=== PATIENT | male | born 1940 | race Caucasian/White ===

== ENCOUNTER 2018-01-23 06:11 | Observation (INO) | payer OTHER ==
[2018-01-23] MEDS ORDERED: FAMOTIDINE 20 MG TAB PO ONE (06:16)
[2018-01-23] MEDS ORDERED: DIAZEPAM 5 MG TAB PO ONE (06:16)
[2018-01-23] MEDS ORDERED: diphenhydrAMINE 25 MG CAP PO ONE (06:16)
[2018-01-23] MEDS ORDERED: NS 1,000 ML IV ONE ×2 (06:16→14:32)
[2018-01-23] MEDS ORDERED: ASPIRIN EC 325 MG TAB PO ONE (06:16)
[2018-01-23] MEDS ORDERED: CLOPIDOGREL BISULFATE 75 MG TAB ONE (06:48)
--- NOTE | 2018-01-23 06:50 | PDPROPOC ---
Sedation Plan of Care Sedation Plan of Care: mental status noted, patient educated of risks, benefits , alternatives, patient can tolerate sedation ASA Classification: ASA 2 Planned drugs: fentanyl, midazolam Mallampati Score: Class 2 Mallampati Reference Image: Patient passed 3-3-2 rule?: Yes
--- NOTE | 2018-01-23 06:50 | PDHPUP ---
History & Physical Update H&P update statement: This history and physical update is based on an assessment of the patient which was completed after admission or registration (within 24 hours), but prior to the surgery/procedure. H&P update: H&P reviewed & patient examined, no change in patient's condition since H&P completed
[2018-01-23 06:53] LABS: PLATELET COUNT 169 10^3/uL (150-400)
[2018-01-23] MEDS ORDERED: CLOPIDOGREL BISULFATE 75 MG TAB PO ONE (07:00)
[2018-01-23 07:01] LABS: INR 0.98 (0.83-1.16); PROTIME(PATIENT) 13.2 SEC (12.0-15.0)
[2018-01-23] MEDS ORDERED: IOPAMIDOL (ISOVUE-370) 150 ML BTL IV ONE (07:11)
[2018-01-23] MEDS ORDERED: LIDOCAINE 1% 300 MG/30 ML SDV ONE (07:11)
[2018-01-23] MEDS ORDERED: fentaNYL 100 MCG/2 ML INJ ONE (07:14)
[2018-01-23] MEDS ORDERED: MIDAZOLAM 2 MG/2 ML VIAL ONE ×2 (07:15→15:30)
[2018-01-23] MEDS ORDERED: hydrALAZINE 20 MG/ML VIAL ONE (07:33)
[2018-01-23] MEDS ORDERED: BIVALIRUDIN 250 MG/5 ML VIAL IV ONE (07:47)
[2018-01-23] MEDS ORDERED: NITROGLYCERIN 1,500 MCG/15 ML VIAL MISC ONE (08:05)
[2018-01-23] MEDS ORDERED: ONDANSETRON 4 MG/2 ML VIAL IVP PRN (08:30)
[2018-01-23] MEDS ORDERED: NITROGLYCERIN 0.4 MG BTL SL PRN (08:30)
[2018-01-23] MEDS ORDERED: OXYCODONE/APAP 5/325 TAB PO PRN (08:30)
[2018-01-23] MEDS ORDERED: LORazepam 2 MG/ML INJ IVP PRN (08:30)
[2018-01-23] MEDS ORDERED: TEMAZEPAM 15 MG CAP PO PRN (08:30)
[2018-01-23] MEDS ORDERED: ATROPINE SULFATE 1 MG/10 ML SYR IVP PRN (08:30)
[2018-01-23] MEDS ORDERED: HYDROCODONE/APAP 5/325 TAB PO PRN (08:30)
--- NOTE | 2018-01-23 09:28 | CPIP ---
DATE OF PROCEDURE: 01/23/2018 INDICATION FOR PROCEDURE: Shortness of breath, critical aortic stenosis. PROCEDURE: 1. Nonselective left groin sheathogram. 2. 7-Luxembourger sheath left common vein. 3. Right heart catheterization. 4. Bilateral coronary angiography. 5. Abdominal aortogram. 6. Percutaneous coronary intervention of the right posterolateralis sinister utilizing Synergy 3.0 x 12 mm drug-eluting stent. HISTORY: Briefly, this is a 77-year-old male with history of severe aortic stenosis, which has now b ecome symptomatic over the last month. Patient has been complaining of dyspnea on exertion. Given t hese findings, patient consented for right and left heart catheterization in anticipation for eventua l TAVR. The patient has seen Dr. Alvarez from CT surgery who deemed the patient to be a suitable cand idate for TAVR barring multivessel coronary artery disease. DESCRIPTION OF PROCEDURE: After informed consent, the patient was brought to [facility] where the left groi n was prepped and draped in normal sterile fashion. Utilizing lidocaine, a short 6-Luxembourger sheath in the left common artery, verified angiographically. 7-Luxembourger sheath left common vein. Right heart ca theter was advanced. Wedge pressure mean 11, A-wave 16, V-wave 11, PA pressure systolic 30, diastoli c 9, mean of 17. RV pressure systolic 30, diastolic 3, end of 8. RA pressure mean of 5, A-wave 8, V -wave 8. Cardiac output was measured to be 5.4, with Ariel of 2.6. AO sat was 94%. PA sat was 75%. Right heart catheter was then removed. A JL4 catheter was then advanced to the left coronary artery. Left coronary artery revealed normal l eft main. Left circumflex artery had 10% to 20% plaque disease proximally and distally, terminating to a marginal 1 artery, which was healthy and free of disease. There was a tiny ramus intermedius, w hich was healthy and free of disease. The LAD was a long vessel, which wrapped around the apex. The re was a proximal diagonal artery with mild 20% to 30% ostial disease and an additional smooth 30% to 40% disease in midportion. The 2nd diagonal artery had no significant disease. The LAD had 20% to 30% plaque disease throughout its course, but was overall a healthy vessel with no significant critic al disease. After these were obtained, the JL4 catheter removed. A JR4 catheter was advanced to the right nguyen ry artery. Images of the right coronary artery revealed slightly aneurysmal ostial RCA. The mid RCA had tubular 40% disease. The distal RPDA appeared widely healthy and free of disease. The RPLS had a focal 90% narrowing just at the takeoff of a bifurcating branch. After these images were obtained, the JR4 catheter was removed. The pigtail catheter was advanced to the abdominal aorta where abdominal aortogram showed widely patent abdominal aorta, widely patent bi lateral common, external, internal iliac arteries with mild plaque disease. INTERVENTION REPORT: At this time, patient was administered of Plavix p.o. and started on Angiomax bolus and drip. Utilizing a JR4 6-Luxembourger guide catheter, the right coronary artery was carlos ectively engaged. A Choice PT wire was placed down and successfully crossed the lesion in the RPLS. Predilatation commenced with a 3.0 x 12 balloon at 12 atmospheres. After this was performed, angiog raphic images obtained, which showed improved patency of this area. We decided to proceed with stenting this vessel with a 3.0 x 12 Synergy drug-eluting stent. This was deployed successfully at 11 atmospheres. After deployment, angiographic images were obtained, which showed excellent patency of the stented region. There was slight plaque shift into the inferior por tion of the RPLS, but there was still ISABELL-3 grade flow through this vessel. At this time, this sadie ent was administered 200 mcg of nitroglycerin and images were retaken, once again showing ISABELL-3 flow through the vessels with a slight plaque shift in the inferior portion of the RPLS. Wire was pulled back. The guide catheter was removed. The left groin was then sutured in place. Patient tolerated the procedure well with no complications. IMPRESSION: 1. Successful percutaneous coronary intervention of high-grade distal right posterolateralis siniste r disease with Synergy 3.0 x 12 mm drug-eluting stent. 2. Mild noncritical disease in left coronary artery system. 3. Normal pulmonic pressures. 4. Normal cardiac output. PLAN: The patient will be admitted to observation overnight. CT-A of the chest, abdomen, and pelvis , as well as carotid ultrasound will be performed. If clinically stable, patient be discharged withi n 24 hours. The patient will be following up with CT Surgery for a second surgical opinion within week. If deemed to be suitable for transcatheter aortic valve replacement, we will plan a transcat heter aortic valve replacement on February 04. /[id number]/MODL
--- NOTE | 2018-01-23 11:02 | CPEKG ---
Test Reason : OPEN Blood Pressure : / mmHG Vent. Rate : 066 BPM Atrial Rate : 066 BPM P-R Int : 286 ms QRS Dur : 092 ms QT Int : 481 ms P-R-T Axes : -11 -19 150 degrees QTc Int : 505 ms Sinus rhythm Prolonged UT interval Left atrial enlargement Abnormal R-wave progression, early transition LVH with secondary repolarization abnormality ST depr, consider ischemia, inferior leads Prolonged QT interval Confirmed by Ramón Alejandro ([id number]) on 01/23/2018 11:01:40 AM Referred By: Confirmed By:Ramón Alejandro
--- NOTE | 2018-01-23 11:02 | CPEKG ---
Test Reason : OPEN Blood Pressure : / mmHG Vent. Rate : 066 BPM Atrial Rate : 067 BPM P-R Int : 233 ms QRS Dur : 092 ms QT Int : 514 ms P-R-T Axes : 028 -20 206 degrees QTc Int : 539 ms Sinus rhythm Prolonged ND interval Left atrial enlargement Abnormal R-wave progression, early transition LVH with secondary repolarization abnormality ST depr, consider ischemia, inferior leads Prolonged QT interval Confirmed by Ramón Alejandro ([id number]) on 01/23/2018 11:01:58 AM Referred By: Confirmed By:Ramón Alejandro
--- NOTE | 2018-01-23 13:36 | ECHO ---
[email or web address] [address] [address] Main: [phone] Fax: Transthoracic Echocardiogram Name: JERICHO MATTHEWS MR#: [id number] Study Date: 01/23/2018 Study Time: 11:43 AM Date of : 1940 Age: 77 year(s) Height: 177.8 cm (70 in.) Weight: 84.37 kg (186 lb.) BSA: 2.02 m2 Gender: Male Examination: Echo Indication: Post Cath, Aortic stenosis Image Quality: Contrast: Requested by: Oswaldo Edmondson BP: 139 mmHg/49 mmHg Heart Rate: Rhythm: Normal sinus rhythm Indication: Post Cath, Aortic stenosis Procedure Staff Hammer Operator: Yaniv Marcial RDCS Reading Physician: Oswaldo Edmondson MD Requesting Provider: Conclusions: Normal global systolic LV function. EF is 62 %. There is basal-septal thickening with LVOT outflow obstruction.. Aortic valve is not well visualized. Mild to moderate aortic valve regurgitation. The Ao Vmax with pedoff probe is 4.4 m/s with a AV mean PG of 49 mmHg.. Measurements: Chambers Valvular Assessment AV/MV Valvular Assessment TV/PV Normal Normal Normal Name Value Range Name Value Range Name Value Range Ao Michelle (2D): 1.7 cm (1.4 cm-2.6 AV Vmax: 4.47 m/s (1 m/s-1.7 cm) m/s) IVSd (2D): 1.1 cm (0.6 cm-1.1 AV maxP mmHg ( - ) cm) AV meanP mmHg ( - ) LVDd (2D): 4.6 cm (4.2 cm-5.9 MANI (VTI): 2.1 cm ( - ) cm) MV E Vmax: 0.49 m/s ( - ) LVDs (2D): 3.1 cm (2.1 cm-4 MV A Vmax: 1.08 m/s ( - ) cm) MV E/A: 0.45 ( - ) LVPWd (2D): 1.4 cm (0.6 cm-1 cm) LVOTd 2.0 cm 2.0 cm mm LVEF (2D): 62 (>=54 %) Continued Measurements: Chambers Valvular Assessment AV/MV Name Value Name Value LADs Lon.7 cm MV E' Septal: 0.05 m/s LA Area: 17.1 cm2 MV E/E' Septal: 10.10 Patient: JERICHO MATTHEWS Study Date: 01/23/2018 Page 1 of 2 11:43 AM MV E/E' Lateral: 9.60 Findings: Left Ventricle: Normal size left ventricle. Normal global systolic LV function. EF is 62 %. No regional wall motion abnormality. There is basal-septal thickening with LVOT outflow obstruction.. Right Ventricle: Normal size right ventricle. Normal RV function. Left Atrium: The left atrium is normal in size. Right Atrium: The right atrium is normal in size. Mitral Valve: Mild mitral valve leaflet calcification is present. Trivial mitral valve regurgitation. Aortic Valve: Aortic valve is not well visualized. Mild to moderate aortic valve regurgitation. The Ao Vmax with pedoff probe is 4.4 m/s with a AV mean PG of 49 mmHg.. Tricuspid Valve: The tricuspid valve appears normal. Pulmonic Valve: Pulmonary valve not well visualized. Aorta: The aorta is normal. Pericardium: No pericardial effusion. Exam Comments: Suggest WHIT to better visualize the aortic valve and to examine the LVOT.. (No Signature Object) Patient: JERICHO MATTHEWS Study Date: 01/23/2018 Page 2 of 2 11:43 AM [id number]
[2018-01-23] MEDS ORDERED: IOPAMIDOL (ISOVUE 370) 100 ML BTL IV ONE (14:09)
--- NOTE | 2018-01-23 15:22 | PDANEPAE ---
ANE History of Present Illness 77 yo with CAD s/p stent *2 today, also found to have and possible LVOT, for WHIT for eval ANE Past Medical History - Cardiovascular History Hx Hypertension: Yes Hx Chest Pain: No Hx Coronary Artery / Peripheral Vascular Disease: Yes - Pulmonary History Hx COPD: No Hx Asthma/Reactive Airway Disease: No Hx Recent Upper Respiratory Infection: No Hx Oxygen in Use at Home: No Hx Sleep Apnea: No - Endocrine History Hx Diabetes: No Hypothyroid: No Hyperthyroid: No Obesity: no - Renal History Hx Renal Disorders: No - Liver History Hx Hepatic Disorders: No - Neurological & Psychiatric Hx Hx Neurological and Psychiatric Disorders: No - Cancer History Hx Cancer: No - Congenital Disorder History Hx Congenital Disorders: No - GI History GERD: no, mild - Chronic Pain History Chronic Pain: No ANE Review of Systems Review of Systems: - Systems Constitutional: Reports: no symptoms EENMT: Reports: no symptoms Cardiac: Reports: no symptoms Respiratory: Reports: no symptoms Gastrointestinal: Reports: no symptoms Genitourinary: Reports: no symptoms Muscolosketal: Reports: no symptoms ANE Patient History - Allergies Allergies/Adverse Reactions: No Known Allergies Allergy (Verified 01/23/18 13:41) - Home Medications Home Medications: Hydrochlorothiazide [Hydrochlorothiazide 25 MG (RX)] 25 mg PO BID 08/05/11 [ Last Taken 01/22/18 07:00] Losartan Potassium 100 mg PO DAILY18 08/05/11 [Last Taken 01/22/18 17:00] Simvastatin 20 mg PO DAILY18 08/05/11 [Last Taken 01/22/18] Verapamil ER [Calan (RX)] 240 mg PO BID 08/05/11 [Last Taken 01/23/18 05:00] cloNIDine HCL [Clonidine HCl] 0.1 mg PO DAILY18 08/05/11 [Last Taken 01/21/18 18 :00] Aspirin [Aspirin 81mg (*)] 81 mg PO HS 01/23/18 [Last Taken 01/22/18] C/E/Zn/Cu/OM3/DHA/EPA/LUT/ZEAX [Preservision Areds 2 Softgel] 1 each PO DAILY [Last Taken Unknown] Nitroglycerin [Nitrostat 0.4 mg (*)] 0.4 mg SL Q5M PRN 11/14/18 [Last Taken Unknown] - Smoking Hx Smoking Status: Current every day smoker ANE Labs/Vital Signs - Labs Result Diagrams: 01/23/18 06:45 01/23/18 06:45 - Vital Signs Blood Pressure: 154/67 Heart Rate: 58 Respiratory Rate: 12 O2 Sat (%): 96 Height: 177.8 cm Weight: 84.368 kg ANE Physical Exam - Airway Neck exam: FROM Mallampati Score: Class 2 Mouth exam: normal dental/mouth exam - Pulmonary Pulmonary: no respiratory distress, clear to auscultation - Cardiovascular Cardiovascular: regular rate and rhythym, no murmur, rub, or gallop - ASA Status ASA Status: III ANE Anesthesia Plan Anesthesia Plan: MAC Total IV Anesthesia: Yes
[2018-01-23] MEDS ORDERED: PROPOFOL 200 MG/20 ML VIAL ONE (15:30)
--- NOTE | 2018-01-23 16:12 | POSTANESTH ---
Post Anesthetic Evaluation Cardiovascular Status: Normal, Stable Respiratory Status: Normal, Stable Level of Consciousness/Mental Status: Moderately Sleepy Pain Control: Adequate, Prn Tx Ordered Nausea/Vomiting Control: Adequate, Prn Tx Ordered Complications Possibly Related to Anesthesia: None Noted
[2018-01-23] MEDS ORDERED: LOSARTAN POTASSIUM 50 MG TAB PO SCH (18:00)
--- NOTE | 2018-01-23 18:08 | ECHO ---
[email or web address] [address] [address] Main: [phone] Fax: Transesophageal Echocardiography Name: JERICHO MATTHEWS MR#: [id number] Study Date: 01/23/2018 Study Time: 03:21 PM Date of : 1940 Age: 77 year(s) Height: ( ) Weight: ( ) BSA: Gender: Male Examination: WHIT Indication: Eval Aortic Valve Image Quality: Contrast: Requested by: Meryl Gonzalez Heart Rate: Rhythm: Normal sinus rhythm BP: / Procedure Staff Choreography Director: Yaniv Marcial RDCS Reading Physician: Son Delatorre MD Requesting Provider: WHIT Exam Details Conclusions: Normal size left ventricle. Severe concentric LV hypertrophy. Normal global systolic LV function. EF is 70 %. The ejection fraction, measured by Simpsons method, is 70 %. No regional wall motion abnormality. Normal size right ventricle. Normal RV function. The left atrium is mildly dilated. The mitral valve is normal in appearance. Mild mitral valve regurgitation is present. Lambl's excrescences are appreciated. The aortic valve is tri-leaflet. Mild aortic cusp calcification is noted. Moderate aortic valve regurgitation is present. The left ventricular outflow tract is narrowed due to hypertrophy of the interventricular septum and the presence of a subvalvular membrane. There is no evidence of valvular aortic stenosis. The tricuspid valve is normal in appearance and function. No pericardial effusion. Measurements: Chambers Valvular Assessment AV/MV Valvular Assessment TV/PV Normal Normal Normal Name Value Range Name Value Range Name Value Range LVEF (BP): 70 % (>=55 %) Patient: JERICHO MATTHEWS Study Date: 01/23/2018 Page 1 of 2 03:21 PM Additional Measurements: Findings: Left Ventricle: Normal size left ventricle. Severe concentric LV hypertrophy. Normal global systolic LV function. EF is 70 %. The ejection fraction, measured by Simpsons method, is 70 %. No regional wall motion abnormality. Right Ventricle: Normal size right ventricle. Normal RV function. Left Atrium: The left atrium is mildly dilated. Right Atrium: The right atrium is normal in size. Mitral Valve: The mitral valve is normal in appearance. Mild mitral valve regurgitation is present. Lambl's excrescences are appreciated. Aortic Valve: The aortic valve is tri-leaflet. Mild aortic cusp calcification is noted. Moderate aortic valve regurgitation is present. The left ventricular outflow tract is narrowed due to hypertrophy of the interventricular septum and the presence of a subvalvular membrane. There is no evidence of valvular aortic stenosis. Tricuspid Valve: The tricuspid valve is normal in appearance and function. Pericardium: No pericardial effusion. l1n (No Signature Object) Patient: JERICHO MATTHEWS Study Date: 01/23/2018 Page 2 of 2 03:21 PM [id number]
[2018-01-23] MEDS: VERAPAMIL ER 240 MG TAB PO SCH (20:55)
[2018-01-23] MEDS: HYDROCHLOROTHIAZIDE 25 MG TAB PO SCH (20:56)
[2018-01-23] MEDS ORDERED: ASPIRIN EC 81 MG TAB PO SCH (21:00)
[2018-01-24 06:08] LABS: PLATELET COUNT 155 10^3/uL (150-400)
[2018-01-24] MEDS ORDERED: ATORVASTATIN CALCIUM 10 MG TAB PO SCH (09:00)
[2018-01-24] MEDS ORDERED: CLOPIDOGREL BISULFATE 75 MG TAB PO SCH (09:00)
[2018-01-24] MEDS: HYDROCHLOROTHIAZIDE 25 MG TAB PO SCH (09:18)
[2018-01-24 09:19] VITALS: BP 164/52
--- NOTE | 2018-01-24 10:31 | ASDISCHSUM ---
Discharge Information Plan Status:Home with No Needs Medically Cleared to Leave:01/23/2018 Discharge Date:01/23/2018 CM D/C Disposition:Home, Routine, Self-Care ADT D/C Disposition:Home, Routine, Self-Care Projected Discharge Date:01/23/2018 Transportation at D/C: Discharge Delay Reason: Follow-Up Date:01/23/2018 Discharge Slot: Final Diagnosis: Placement Information Patient Contact Information Contact Name:ALEXIS Relationship: Address:[address] City:[place] Alternate Phone: [facility]/Zip Code:[place] [address] Email: Financial Information Financial Class:Medicare Advantage Plans Primary Plan Desc:[employer] MEDICARE ADV Primary Plan Number:[id number] Secondary Plan Desc: Secondary Plan Number: Assessment Information LACE LACE Length of stay for Answers: Less than 1 day current admission Acuity / Level of Answers: No Care: Did the patient have an inpatient admission? Comorbidities - select Answers: Coronary Artery Disease all that apply # of Emergency department Answers: 0 visits in the last 6 months Score: 2 Date Signed: 01/24/2018 10:29 AM Electronically Signed By:Divine Peters RN Intervention Information
[2018-01-24] MEDS: VERAPAMIL ER 240 MG TAB PO SCH (10:41)
--- NOTE | 2018-01-24 11:58 | GDS ---
DISCHARGE DIAGNOSES: 1. Coronary artery disease, status post stenting to the right posterolateralis sinister with a Syner gy 3.0 x 12 mm drug-eluting stent. 2. Severe left ventricular hypertrophy with left ventricular outflow tract narrowing, and the presen ce of subvalvular membrane. 3. Hypertension. 4. Hyperlipidemia. 5. Carotid disease. HOSPITAL COURSE: For detailed H and P, please see prior dictation. Briefly, the patient is a 77-yea r-old male who presented to our office complaining of dyspnea on exertion. He was also thought to chan ve severe aortic stenosis, and therefore was admitted electively for a right and left heart catheteri zation. He had mild disease of the left system. The right system showed a focal 90% narrowing at th e right posterolateralis sinister, which was stented with a 3.0 x 12 mm drug-eluting stent. The foll owing morning, he denied any chest discomfort or shortness of breath. He was monitored on telemetry and remained in normal sinus rhythm. His EKG at the time of discharge revealed normal sinus rhythm w ith diffuse ST, T-wave changes, which were unchanged from his prior EKG. His left groin where access was obtained for the angiogram is clean, intact without any evidence of hematoma or infection. He d enied any significant discomfort of his groin site. During his hospitalization, he had an echo to try and visualize his aortic valve. Had difficulty obt aining good images, and therefore, he had a WHIT by Dr. Ramo Delatorre. He was identified to have severe c oncentric left ventricular hypertrophy with an ejection fraction of 70%. There was evidence of left ventricular outflow tract narrowing due to the hypertrophy of the interventricular septum and the pre sence of a subvalvular membrane. No aortic stenosis was identified. He did have moderate aortic ins ufficiency. A carotid ultrasound showed moderate disease of the right carotid bulb with mild plaque of the left. PHYSICAL EXAMINATION: GENERAL: Patient appears in no acute distress. VITAL SIGNS: Blood pressure 164/52, heart rate 56, oxygen saturation of 97% on room air, afebrile. LUNGS: Clear to auscultation . No wheezes, rhonchi, or crackles auscultated. CARDIAC: Regular rate and rhythm. EXTREMITIES: L eft groin where access was obtained for the angiogram is clean, intact without any evidence of infect ion or hematoma. He does have ecchymosis, secondary to [id number] bruising. LABORATORY DATA: LDL 110, HDL 46, triglycerides 201, non-HDL 150. DISCHARGE MEDICATIONS: Plavix 75 mg daily, aspirin 81 mg daily, clonidine 0.1 mg p.r.n. for systolic blood pressures greater than 170, verapamil 240 mg b.i.d., losartan 100 mg daily, hydrochlorothiazid e 25 mg b.i.d., Lipitor 40 mg daily. PLAN: Patient is currently stable and ready for discharge home. He is aware he is to remain on aspi rin and Plavix for minimum of 1 year. His Lipitor has been titrated up to 40 mg daily, secondary to an elevated LDL in a patient with known coronary disease and peripheral vascular disease. He will ne ed a repeat fasting lipid profile and liver function tests in 2 months. He has evidence of severe le ft ventricular hypertrophy without any aortic stenosis. The patient will follow up with Dr. Edmondson to discuss that and discuss next the next step. Greater than 30 minutes was spent coordinating the patient's care today. /[id number]/MODL
--- NOTE | 2018-01-24 16:39 | CPEKG ---
Test Reason : OPEN Blood Pressure : / mmHG Vent. Rate : 055 BPM Atrial Rate : 054 BPM P-R Int : 266 ms QRS Dur : 093 ms QT Int : 473 ms P-R-T Axes : -24 -18 225 degrees QTc Int : 453 ms Sinus rhythm Prolonged ND interval Probable left atrial enlargement Abnormal R-wave progression, early transition LVH with secondary repolarization abnormality ST depr, consider ischemia, inferior leads Confirmed by Ramón Alejandro ([id number]) on 01/24/2018 4:39:12 PM Referred By: Confirmed By:Ramón Alejandro
== END 2018-01-24 10:50 | disposition home or self-care (01) ==
LOC: FCATH 06:11 → F2W 13:05
PROVIDERS: ADMIT Internal Medicine Cardiovascular Disease; ATTEND Internal Medicine Cardiovascular Disease
DX: I25.10 Atherosclerotic heart disease of native coronary artery without angina pectoris (principal); I35.1 Nonrheumatic aortic (valve) insufficiency; I65.21 Occlusion and stenosis of right carotid artery; I77.1 Stricture of artery; I50.30 Unspecified diastolic (congestive) heart failure; I11.0 Hypertensive heart disease with heart failure; I42.2 Other hypertrophic cardiomyopathy; E78.5 Hyperlipidemia, unspecified; I27.20 Pulmonary hypertension, unspecified; M48.061 Spinal stenosis, lumbar region without neurogenic claudication; F17.210 Nicotine dependence, cigarettes, uncomplicated; Z79.82 Long term (current) use of aspirin
CPT/HCPCS: 71275; 74174; 93005; 93306; 93312; 93460; 93880; C1725; C1769; C1874; C1887; C9600; G0378; J0360; J0583; J1644; J2250; J2704; J3010; Q9967; J0461